=== PATIENT | female | born 1945 | race Caucasian/White ===

== ENCOUNTER 2022-08-08 20:57 | Observation (INO) ==
--- NOTE | 2022-08-08 21:23 | EKG ---
Test Reason : CHEST PAIN Blood Pressure : */* mmHG Vent. Rate : 89 BPM Atrial Rate : 89 BPM P-R Int : 186 ms QRS Dur : 174 ms QT Int : 434 ms P-R-T Axes : 52 -12 233 degrees QTc Int : 528 ms Atrial-sensed ventricular-paced rhythm Abnormal ECG No previous ECGs available Confirmed by Cole Coleman ([id number]) on 08/10/2022 8:15:48 AM Referred By: Confirmed By: Cole Coleman
--- NOTE | 2022-08-08 21:23 | DR.CP ---
HPI Time Seen Time Seen by Provider: 08/08/22 21:23 Complaint Chief Complaint Doctor Comments: 77 y/o female presents for evaluation. Not feeling well over the past week. Has had trouble breathing, non productive cough, episodes of chest discomfort. Today was walkig in a store, felt worse. Had to sit to catch her breath. Went home, took a nap. Feeling poorly, having some chest discomfort, but more of the sensation of not breathing well. Having some nausea, no vomiting. Denies bowel or bladder problems. No fever. Cough was improving yesterday. Reviewed Nurses Notes Review: Yes Source History Provided: Patient and Family Member PMH PMH Past Medical History: Yes Past Medical History: CVA, Depression, GERD and Hypertension Past Medical History Comment: h/o atrial fib, kidney stones Past Surgical History: Yes Surgical History: Hysterectomy Past Surgical History Comment: Pacemaker, spinal stimulator Family History History of Family Medical Conditions: Yes Family Medical History: Diabetes Mellitus, Coronary Artery Disease, Heart Failure and Hypertension Social History Does patient currently use any type of tobacco product: No Alcohol Use: None Do you use any recreational Drugs:: No ROS Review of Systems Constitutional: Weakness Eyes: No Symptoms Reported ENTM: No Symptoms Reported Respiratoy: Non-Productive Cough and Short of Breath Cardiovascular: Chest Pain Gastrointestinal/Abdominal: Nausea Genitourinary: No Symptoms Reported Neurological: Weakness Musculoskeletal: No Symptoms Reported Integumentary: No Symptoms Reported Hematologic/Lymphatic: No Symptoms Reported Psychiatric: No Symptoms Reported PE Vitals Vitals: Temperature 97.8 F Pulse Rate 74 Respiratory Rate 16 Blood Pressure 162/72 O2 Sat by Pulse Oximetry 93 General General Appearance: Alert and In No Apparent Distress Eyes Eye exam: PERRL and EOMI ENT ENT Exam: Normal Exam and Mucous Membranes Moist Chest Chest Inspection: Normal Inspection Respiratory Respiratory Exam: Normal Lung Sounds Bilat; negative Accessory Muscle Use or Respiratory Distress Cardiovascular Cardiovascular Exam: Regular Rate, Normal Rhythm and Normal Heart Sounds Abdominal Exam Abdominal Exam: Normal Bowel Sounds, Soft and Tenderness (mild RUQ) Extremities Extremities Exam: Normal Inspection; negative Edema Back Back Exam: negative Tenderness Neurologic Neurological Exam: Alert, Oriented X3 and CN II-XII Intact; negative Motor Sensory Deficit Skin Skin Exam: Warm and Dry COURSE Treatment Treatment: 77 y/o female not feeling well overthe past week, worsened today. W/u initiated. Pt given IV fluids, IV zofran. 0222 - initial CXR read as normal by radiology & me. CBC, CMP acceptable, except for elevated liver enzymes (AST 150, ALT 104). No labs here to compare to. Pt/familyunaware if she has had elevated liver enzymes in the past. Still has a GB. Obtained a CT of the abd/pelvis with IV contrast. CT done at 0140. Has a normal GB on CT. To me, has an infiltrate of the RLL, behind the diaphragm, appears to have an air bronchogram present. Radiologist read as atelectasis, but no significant LLL atelectasis. Ordered blood cultures, lactic acid, and IV Rocephin. Antibiotics not given earlier, as no obvious pneumonina on CXR. Recommend observation for further evaluation and treatment. 0307 - discussed with Dr Baer, accepts the admission. ROR Labs Reviewed Laboratory Results Reviewed?: Yes Result Diagrams: 08/08/22 21:30 08/08/22: Laboratory: WBC 7.7 X10^3/uL (3.6-10.0) 08/08/22 21: RBC 4.21 X10^6/uL (3.5-5.4) 08/08/22: Hgb 12.6 g/dL (12.0-16.0) 08/08/22: Hct 37.4 % (36.0-47.0) 08/08/22 21: MCV 88.8 fL (80.0-100.0) 08/08/22: MCH 30.0 pg (27.0-34.0) 08/08/22 21: MCHC 33.8 g/dL (33.0-35.0) 08/08/22 21: RDW 13.0 % (11.6-16.5) 08/08/22: Plt Count 237 X10^3/uL (150.0-450.0) 08/08/22: MPV 8.4 fL (7.4-11.0) 08/08/22 21: Neut % (Auto) 65.1 % (42.0-75.0) 08/08/22 21: Lymph % (Auto) 23.5 % (21.0-51.0) 08/08/22 21:30 Edgar % (Auto) 9.5 % (0.0-13.0) 08/08/22 21:30 Eos % (Auto) 1.3 % (0.9-2.9) 08/08/22 21: Baso % (Auto) 0.6 % (0.2-1.0) 08/08/22 21:30 Neut # (Auto) 5.0 x10^3/uL (2.2-4.8) H 08/08/22 21:30 Lymph # (Auto) 1.8 X10^3/uL (1.3-2.9) 08/08/22 21:30 Edgar # (Auto) 0.7 x10^3/uL (0.3-0.8) 08/08/22 21: Eos # (Auto) 0.1 x10^3/uL (0.0-0.2) 08/08/22 21:30 Baso # (Auto) 0.0 X10^3/uL (0.0-0.1) 08/08/22 21:30 Absolute Nucleated RBC 0.0 /100WBC 08/08/22 21:30 Sodium 147 mmol/L (136-145) H 08/08/22 21:30 Corrected Sodium TNP 08/08/22 21:30 Potassium 4.1 mmol/L (3.5-5.1) 08/08/22 21:30 Chloride 108 mmol/L (98-107) H 08/08/22 21:30 Carbon Dioxide 32.2 mmol/L (21-32) H 08/08/22 21:30 BUN 21 mg/dL (7-18) H 08/08/22 21:30 Creatinine 0.96 mg/dL (0.55-1.02) 08/08/22 21:30 Est GFR (MDRD) Af Amer > 60 (>60) 08/08/22 21:30 Est GFR (MDRD) Non-Af > 60 (>60) 08/08/22 21:30 Glucose 89 mg/dL (65-99) 08/08/22 21:30 Lactic Acid 1.1 mmol/L (0.4-2.0) 08/09/22 02:50 Calcium 9.1 mg/dL (8.5-10.1) 08/08/22 21: Corrected Calcium TNP 08/08/22 21:30 Total Bilirubin 0.20 mg/dL (0.2-1.0) 08/08/22 21:30 AST 150 Units/L (15-37) H 08/08/22 21:30 ALT 104 Units/L (12-78) H 08/08/22 21:30 Alkaline Phosphatase 145 Units/L (46-116) H 08/08/22: Troponin I High Sens 6.2 ng/L (4.0-60.0) 08/08/22 21: B-Natriuretic Peptide 40.2 pg/mL (0-79) 08/08/22: Total Protein 6.6 g/dL (6.4-8.2) 08/08/22: Albumin 3.4 g/dL (3.4-5.0) 08/08/22: Globulin 3.2 g/dL (2.5-4.5) 08/08/22: Albumin/Globulin Ratio 1.1 Ratio (1.1-2.1) 08/08/22 21: Lipase 147 Units/L (73-393) 08/08/22 21:30 Specimen Type Clean catch urine 08/08/22 22:00 Urine Color Pale yellow (YELLOW) 08/08/22 22:00 Urine Appearance Clear (CLEAR) 08/08/22 22:00 Urine pH 6.0 (5.0 - 8.0) 08/08/22 22:00 Ur Specific [place] 1.010 (1.000-1.030) 08/08/22 22:00 Urine Protein 1+ (NEGATIVE) 08/08/22 22:00 Urine Glucose (UA) Negative (NEGATIVE) 08/08/22 22:00 Urine Ketones Negative (NEGATIVE) 08/08/22 22:00 Urine Blood Negative (NEGATIVE) 08/08/22 22:00 Urine Nitrite Negative (NEGATIVE) 08/08/22 22:00 Urine Bilirubin Negative (NEGATIVE) 08/08/22 22:00 Urine Urobilinogen Normal (NORMAL) 08/08/22 22:00 Ur Leukocyte Esterase 1+ (NEGATIVE) 08/08/22 22:00 Urine RBC 0-2 /HPF (0-3) 08/08/22 22:00 Urine WBC 0-2 /HPF (0-5) 08/08/22 22:00 Ur Squamous Epith Cells Rare /HPF (NEGATIVE) 08/08/22 22:00 Calcium Oxalate Crystal Few /HPF (NEGATIVE) 08/08/22 22:00 Urine Bacteria Trace /HPF (NEGATIVE) 08/08/22 22:00 Ur Culture Indicated? No/not indicated 08/08/22 22:00 Labs acceptable except for elevated liver enzymes. EKG Rate: 89 Hanna: Normal Rhythm: Paced ST: Nonsp Opioid Opioid Risk Tool Total: 0 Total Score Risk Category: Low Risk Copyright: Marcus WONG predicting aberrant behaviors Discharge Plan Diagnosis Discharge Problem: RLL pneumonia, Dyspnea Discharge Plan Patient Disposition: ADMITTED INPATIENT Condition: Stable Prescriptions: No Action atorvastatin 20 mg tablet 1 tab PO QDAY tizanidine 4 mg tablet 1 tab PO QDAY PRN venlafaxine 150 mg capsule,extended release 24hr 1 cap PO QDAY carvedilol 3.125 mg tablet 1 tab PO BID amitriptyline 25 mg tablet 1 - 2 tab PO QPM flecainide 100 mg tablet 1 tab PO BID folic acid 1 mg tablet 1 tab PO QDAY gabapentin 100 mg capsule 1 cap PO BID Eliquis 5 mg tablet 1 tab PO BID amitriptyline 25 mg tablet 1 - 2 tab PO QPM Health Concerns: Post Hospitalization: new medications and changes needed to prevent readmission or further decline. Pt educated and given instructions on all concerns. Orders to Discharge Patient Discharge Orders: Transfer (Routine); Ordered 08/09/22 Ordered By: Valerio Castillo Follow ups/Referrals Follow ups/Referrals: NIKITA MCCLELLAND [Primary Care Provider] - 3 days
[2022-08-08] MEDS ORDERED: NS 500 ML IV 500 ML IV ONE (21:24)
[2022-08-08] MEDS: NS 500 ML IV 500 ML IV SCH (21:31)
[2022-08-08] MEDS ORDERED: ZOFRAN INJ 4 MG VIAL ONE (21:48)
--- NOTE | 2022-08-08 21:53 | RAD ---
HISTORYChest painSTUDYCHEST, 1 VIEWCOMPARISONNone availableTECHNIQUEChest radiographic imaging, AP portable projection, 1 imageFINDINGSNo cardiomegaly.Pacemaker in place.No focal airspace disease.No pleural effusion.No pneumothorax.No acute osseous abnormality.IMPRESSIONNo imaging findings of acute cardiopulmonary disease.Electronically signed by: Bay Dietrich (Aug 08, 2022 21:52:00)
[2022-08-08 21:55] LABS: BASOPHILS % (AUTO) 0.6 % (0.2-1.0); EOSINOPHILS # (AUTO) 0.1 x10^3/uL (0.0-0.2); EOSINOPHILS % (AUTO) 1.3 % (0.9-2.9); HEMATOCRIT 37.4 % (36.0-47.0); HEMOGLOBIN 12.6 g/dL (12.0-16.0); LYMPHOCYTES # (AUTO) 1.8 X10^3/uL (1.3-2.9); LYMPHOCYTES % (AUTO) 23.5 % (21.0-51.0); MEAN CORPUSCULAR HGB CONC 33.8 g/dL (33.0-35.0); MEAN CORPUSCULAR VOLUME 88.8 fL (80.0-100.0); MEAN PLATELET VOLUME 8.4 fL (7.4-11.0); MONOCYTES # (AUTO) 0.7 x10^3/uL (0.3-0.8); MONOCYTES % (AUTO) 9.5 % (0.0-13.0); NEUTROPHILS % (AUTO) 65.1 % (42.0-75.0); RED BLOOD COUNT 4.21 X10^6/uL (3.5-5.4); WHITE BLOOD COUNT 7.7 X10^3/uL (3.6-10.0)
[2022-08-08] MEDS: ZOFRAN INJ 4 MG VIAL IVP ONE (21:56)
[2022-08-08 22:08] LABS: ALANINE AMINOTRANSFERASE 104 Units/L (12-78); ALBUMIN 3.4 g/dL (3.4-5.0); ALKALINE PHOSPHATASE 145 Units/L (46-116); ASPARTATE AMINO TRANSFERASE 150 Units/L (15-37); BLOOD UREA NITROGEN 21 mg/dL (7-18); CALCIUM 9.1 mg/dL (8.5-10.1); CARBON DIOXIDE 32.2 mmol/L (21-32); CHLORIDE 108 mmol/L (98-107); CREATININE 0.96 mg/dL (0.55-1.02); LIPASE 147 Units/L (73-393); SODIUM 147 mmol/L (136-145); TOTAL PROTEIN 6.6 g/dL (6.4-8.2); eGFR NON BLACK RACES > 60 (>60)
[2022-08-08 22:38] LABS: BILIRUBIN,URINE NEGATIVE (NEGATIVE); BLOOD/HEMOGLOBIN,URINE NEGATIVE (NEGATIVE); GLUCOSE, URINE NEGATIVE (NEGATIVE); KETONES,URINE NEGATIVE (NEGATIVE); LEUKOCYTE ESTERASE ,URINE 1+ (NEGATIVE); NITRITES,URINE NEGATIVE (NEGATIVE); PROTEIN,URINE 1+ (NEGATIVE); UROBILINOGEN,URINE NORMAL (NORMAL)
[2022-08-08 22:46] LABS: APPEARANCE,URINE CLEAR (CLEAR); BACTERIA,URINE TRACE /HPF (NEGATIVE); CALCIUM OXALATE CRYSTALS,UR FEW /HPF (NEGATIVE); COLOR,URINE PALE YELLOW (YELLOW); RBC,URINE 0-2 /HPF (0-3); SQUAMOUS EPITHELIAL CELL,UR RARE /HPF (NEGATIVE)
[2022-08-09] MEDS ORDERED: ROCEPHIN VIAL 1 GRAM 1 G in NS 100 ML IV 100 ML IV SCH (02:06)
[2022-08-09] MEDS ORDERED: NS 100 ML IV 100 ML ONE (02:09)
[2022-08-09] MEDS ORDERED: ROCEPHIN VIAL 1 GRAM ONE (02:09)
--- NOTE | 2022-08-09 02:09 | CT ---
HISTORYNAUSEA, ABN LIVER ENZYMESSTUDYABDOMEN/PELVIS WITH CONCOMPARISONNoneTECHNIQUEMultiple axial images of the abdomen and pelvis were obtained from the lung bases to the pubic symphysis after the administration of IV contrast. Dose reduction techniques including Automated Exposure Control (AEC) and adjustment of mA and kV were utilized.FINDINGSThe visualized portions of the lung bases subsegmental atelectasis right lower lobe.. The liver, spleen, pancreas, kidneys, and adrenal glands are unremarkable in their CT appearance. The gallbladder is unremarkable in its CT appearance . No significant mesenteric lymphadenopathy or stranding can be observed. No free fluid or free air is seen within the abdomen. The appendix is not visualized. No bowel wall thickening or bowel dilatation is present. Colon is normal in caliber. There are scattered diverticula arising from the descending and sigmoid colon without evidence of acute diverticulitis.. The urinary bladder is grossly unremarkable. The uterus is been removed. The bony structures are grossly intact. There is dextroscoliosis of the lumbar spine.IMPRESSIONColonic diverticulosis without evidence of diverticulitis.No acute abdominal or pelvic pathologyElectronically signed by: Flo Jensen (Aug 09, 2022 02:07:53)
[2022-08-09] MEDS ORDERED: ZANAFLEX PO PRN (04:28)
[2022-08-09 04:42] VITALS: BMI 27.1
--- NOTE | 2022-08-09 04:50 | EKG ---
Test Reason : cp Blood Pressure : */* mmHG Vent. Rate : 71 BPM Atrial Rate : 71 BPM P-R Int : 222 ms QRS Dur : 150 ms QT Int : 460 ms P-R-T Axes : 49 -43 36 degrees QTc Int : 499 ms Atrial-sensed ventricular-paced rhythm with prolonged AV conduction Abnormal ECG When compared with ECG of 08-AUG-2022 21:21, (Unconfirmed) Vent. rate has decreased BY 18 BPM Confirmed by Cole Coleman ([id number]) on 08/10/2022 8:15:10 AM Referred By: Confirmed By: Cole Coleman
[2022-08-09] MEDS ORDERED: SALINE 3% 15 ML NEB TX ONE (04:52)
[2022-08-09] MEDS ORDERED: SALINE 3% 15 ML NEB TX NEB ONE (04:59)
[2022-08-09] MEDS: NS 1,000 ML IV 1,000 ML IV SCH ×3 (05:10→18:20)
[2022-08-09] MEDS: NS 500 ML IV 500 ML IV SCH (05:21)
[2022-08-09 06:31] LABS: BASOPHILS % (AUTO) 0.7 % (0.2-1.0); EOSINOPHILS # (AUTO) 0.1 x10^3/uL (0.0-0.2); EOSINOPHILS % (AUTO) 1.1 % (0.9-2.9); HEMATOCRIT 34.8 % (36.0-47.0); HEMOGLOBIN 11.7 g/dL (12.0-16.0); LYMPHOCYTES # (AUTO) 1.9 X10^3/uL (1.3-2.9); LYMPHOCYTES % (AUTO) 32.1 % (21.0-51.0); MEAN CORPUSCULAR HEMOGLOBIN 29.7 pg (27.0-34.0); MEAN CORPUSCULAR HGB CONC 33.7 g/dL (33.0-35.0); MEAN CORPUSCULAR VOLUME 88.2 fL (80.0-100.0); MEAN PLATELET VOLUME 8.4 fL (7.4-11.0); MONOCYTES # (AUTO) 0.7 x10^3/uL (0.3-0.8); MONOCYTES % (AUTO) 11.8 % (0.0-13.0); NEUTROPHILS # (AUTO) 3.2 x10^3/uL (2.2-4.8); NEUTROPHILS % (AUTO) 54.3 % (42.0-75.0); RED BLOOD COUNT 3.94 X10^6/uL (3.5-5.4); RED CELL DISTRIBUTION WIDTH 12.9 % (11.6-16.5); WHITE BLOOD COUNT 5.9 X10^3/uL (3.6-10.0)
[2022-08-09 07:09] LABS: ALANINE AMINOTRANSFERASE 97 Units/L (12-78); ALBUMIN 2.9 g/dL (3.4-5.0); ALKALINE PHOSPHATASE 123 Units/L (46-116); ASPARTATE AMINO TRANSFERASE 99 Units/L (15-37); BLOOD UREA NITROGEN 19 mg/dL (7-18); CALCIUM 8.9 mg/dL (8.5-10.1); CARBON DIOXIDE 29.1 mmol/L (21-32); CHLORIDE 107 mmol/L (98-107); COR CA(FOR HYPOALB) 9.8 mg/dL (8.5-10.1); CREATININE 0.75 mg/dL (0.55-1.02); SODIUM 143 mmol/L (136-145); TOTAL PROTEIN 5.9 g/dL (6.4-8.2); eGFR NON BLACK RACES > 60 (>60)
[2022-08-09] MEDS ORDERED: TYLENOL 325 MG TAB PO PRN (07:26)
[2022-08-09] MEDS: ELIQUIS PO SCH ×2 (08:23→20:36)
[2022-08-09] MEDS: NEURONTIN CAP 100 MG PO SCH ×2 (08:23→20:36)
[2022-08-09] MEDS: FOLIC ACID TAB 1 MG PO SCH (08:23)
[2022-08-09] MEDS: LIPITOR TAB 20 MG PO SCH (08:24)
[2022-08-09] MEDS: COREG TAB 3.125 MG PO SCH ×2 (08:24→20:36)
[2022-08-09] MEDS: TAMBOCOR PO SCH ×2 (08:24→20:36)
[2022-08-09] MEDS: PROVENTIL NEB TX 0.083% 2.5MG/ 3ML NEB SCH ×2 (08:25→21:32)
[2022-08-09] MEDS: EFFEXOR XR 150 MG CAP 24-HR PO SCH (08:31)
--- NOTE | 2022-08-09 08:43 | DR.H&P ---
H&P History & Physical for Day of: H&P Date: 08/09/22 Chief Complaint Chief Complaint: Dyspnea on exertion Allergies Allergies Allergy/AdvReac Type Severity Reaction Status Date / Time morphine Allergy Verified 08/08/22 21:37 History of Present Illness History of Present Illness: This is a 77-year-old white female who presented to [facility] emergency department last night with complaints of getting dyspnea on exertion while walking in a store yesterday. She had a sit down to rest a while to catch her breath. She does report history of atrial fibrillation in which she is being treated for it she also reports having a pacemaker. 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 Patient does report this morning that the chest tightness and chest discomfort started 2 weeks ago and has been progressively getting worse when she is doing something exertional. ER physician thought the patient may have pneumonia last night as a CT scan revealed that the radiologist called atelectasis in the right lower lobe last night. However the patient is afebrile and does not have elevated white count I am more inclined to think the patient may be suffering from angina symptoms rather than respiratory illness. Past Medical History Past Medical History: CVA, Depression, GERD and Hypertension Past Surgical History Surgical History: Hysterectomy and Ortho Surgery Family History Family Medical History: Diabetes Mellitus and Coronary Artery Disease Social History Does patient currently use any type of tobacco product: No Have you used tobacco products in the last 12 months: No Type of Tobacco Use: None Does any household member use tobacco: No Alcohol Use: None Drug Use: None Medications Home Medications: morphine Allergy (Verified 08/08/22 21:37) CONTINUE taking the following medications amitriptyline 25 mg tablet 1 - 2 tab PO QPM 08/08/22 [History] apixaban 5 mg tablet (Eliquis) 1 tab PO BID 08/08/22 [History] atorvastatin 20 mg tablet 1 tab PO QDAY 08/08/22 [History] carvedilol 3.125 mg tablet 1 tab PO BID 08/08/22 [History] flecainide 100 mg tablet 1 tab PO BID 08/08/22 [History] folic acid 1 mg tablet 1 tab PO QDAY 08/08/22 [History] gabapentin 100 mg capsule 1 cap PO BID 08/08/22 [History] tizanidine 4 mg tablet 1 tab PO QDAY PRN 08/08/22 [History] venlafaxine 150 mg capsule,extended release 24 hr 1 cap PO QDAY 08/08/22 [History] amitriptyline 25 mg tablet 1 - 2 tab PO QPM 08/09/22 [History] Labs Result Diagrams: 08/09/22 05:56 08/09/22 05:56 Labs: Laboratory WBC 5.9 X10^3/uL (3.6-10.0) 08/09/22 05:56 RBC 3.94 X10^6/uL (3.5-5.4) 08/09/22 05:56 Hgb 11.7 g/dL (12.0-16.0) L 08/09/22 05:56 Hct 34.8 % (36.0-47.0) L 08/09/22 05:56 MCV 88.2 fL (80.0-100.0) 08/09/22 05:56 MCH 29.7 pg (27.0-34.0) 08/09/22 05:56 MCHC 33.7 g/dL (33.0-35.0) 08/09/22 05:56 RDW 12.9 % (11.6-16.5) 08/09/22 05:56 Plt Count 192 X10^3/uL (150.0-450.0) 08/09/22 05:56 MPV 8.4 fL (7.4-11.0) 08/09/22 05:56 Neut % (Auto) 54.3 % (42.0-75.0) 08/09/22 05:56 Lymph % (Auto) 32.1 % (21.0-51.0) 08/09/22 05:56 [place] % (Auto) 11.8 % (0.0-13.0) 08/09/22 05:56 Eos % (Auto) 1.1 % (0.9-2.9) 08/09/22 05:56 Baso % (Auto) 0.7 % (0.2-1.0) 08/09/22 05:56 Neut # (Auto) 3.2 x10^3/uL (2.2-4.8) 08/09/22 05:56 Lymph # (Auto) 1.9 X10^3/uL (1.3-2.9) 08/09/22 05:56 [place] # (Auto) 0.7 x10^3/uL (0.3-0.8) 08/09/22 05:56 Eos # (Auto) 0.1 x10^3/uL (0.0-0.2) 08/09/22 05:56 Baso # (Auto) 0.0 X10^3/uL (0.0-0.1) 08/09/22 05:56 Absolute Nucleated RBC 0.0 /100WBC 08/09/22 05:56 Sodium 143 mmol/L (136-145) 08/09/22 05:56 Corrected Sodium TNP 08/09/22 05:56 Potassium 4.7 mmol/L (3.5-5.1) 08/09/22 05:56 Chloride 107 mmol/L (98-107) 08/09/22 05:56 Carbon Dioxide 29.1 mmol/L (21-32) 08/09/22 05:56 BUN 19 mg/dL (7-18) H 08/09/22 05:56 Creatinine 0.75 mg/dL (0.55-1.02) 08/09/22 05:56 Est GFR (MDRD) Af Amer > 60 (>60) 08/09/22 05:56 Est GFR (MDRD) Non-Af > 60 (>60) 08/09/22 05:56 Glucose 95 mg/dL (65-99) 08/09/22 05:56 Lactic Acid 1.1 mmol/L (0.4-2.0) 08/09/22 02:50 Calcium 8.9 mg/dL (8.5-10.1) 08/09/22 05:56 Corrected Calcium 9.8 mg/dL (8.5-10.1) 08/09/22 05:56 Total Bilirubin 0.20 mg/dL (0.2-1.0) 08/09/22 05:56 AST 99 Units/L (15-37) H 08/09/22 05:56 ALT 97 Units/L (12-78) H 08/09/22 05:56 Alkaline Phosphatase 123 Units/L (46-116) H 08/09/22 05:56 Troponin I High Sens 7.9 ng/L (4.0-60.0) 08/09/22 05:56 B-Natriuretic Peptide 40.2 pg/mL (0-79) 08/08/22 21:30 Total Protein 5.9 g/dL (6.4-8.2) L 08/09/22 05:56 Albumin 2.9 g/dL (3.4-5.0) L 08/09/22 05:56 Globulin 3.0 g/dL (2.5-4.5) 08/09/22 05:56 Albumin/Globulin Ratio 1.0 Ratio (1.1-2.1) L 08/09/22 05:56 Lipase 147 Units/L (73-393) 08/08/22 21:30 Specimen Type Clean catch urine 08/08/22 22:00 Urine Color Pale yellow (YELLOW) 08/08/22 22:00 Urine Appearance Clear (CLEAR) 08/08/22 22:00 Urine pH 6.0 (5.0 - 8.0) 08/08/22 22:00 Ur Specific [place] 1.010 (1.000-1.030) 08/08/22 22:00 Urine Protein 1+ (NEGATIVE) 08/08/22 22:00 Urine Glucose (UA) Negative (NEGATIVE) 08/08/22 22:00 Urine Ketones Negative (NEGATIVE) 08/08/22 22:00 Urine Blood Negative (NEGATIVE) 08/08/22 22:00 Urine Nitrite Negative (NEGATIVE) 08/08/22 22:00 Urine Bilirubin Negative (NEGATIVE) 08/08/22 22:00 Urine Urobilinogen Normal (NORMAL) 08/08/22 22:00 Ur Leukocyte Esterase 1+ (NEGATIVE) 08/08/22 22:00 Urine RBC 0-2 /HPF (0-3) 08/08/22 22:00 Urine WBC 0-2 /HPF (0-5) 08/08/22 22:00 Ur Squamous Epith Cells Rare /HPF (NEGATIVE) 08/08/22 22:00 Calcium Oxalate Crystal Few /HPF (NEGATIVE) 08/08/22 22:00 Urine Bacteria Trace /HPF (NEGATIVE) 08/08/22 22:00 Ur Culture Indicated? No/not indicated 08/08/22 22:00 Review of Systems Constitutional: Weakness and Malaise; denies Fever, Chills or Sweats Eyes: No Symptoms Reported ENT: No Symptoms Reported Respiratory: Cough and SOB with Excertion; denies Pleuritic Pain or Wheezing Cardiovascular: Chest Pain; denies Palpitations, Orthopnea, Paroxysmal Noc. 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 Wheeze, RLL Rales, RLL Rub or RLL Squeak Cardiovascular: Normal; negative Tachycardia, Bradycardia or Murmur Auscultation: Bowel Sounds: Normal Palpation: Normal Tenderness: Normal Skin: Normal Musculoskeletal: Normal Psychiatric: Normal; negative Anxiety, Depression or Agitation Mood Description: Calm and Appropriate; negative Apathetic or Anxious Affect: Normal; negative Anxious or Hysterical Speech Pattern: Clear and Appropriate; negative Inappropriate or Delayed Assessment/Plan (1) Dyspnea on exertion: Status: Acute Plan: I will consult the patient's sew out operator, Dr. Coleman for further cardiac work-up. (2) History of atrial fibrillation: Status: Acute Plan: Continue flecainide, carvedilol and Eliquis. (3) RLL pneumonia: Status: Acute Plan: Continue Rocephin. Follow-up sputum cultures and blood cultures when available. Repeat chest x-ray tomorrow morning. (4) Abnormal LFTs: Status: Acute Plan: Consult gastroenterology, Dr. Taylor. (5) Hypertension: Narrative Support Text: Patient's blood pressure is elevated this morning at 160s over 60s. Status: Acute Plan: I will add losartan 50 mg p.o. daily Review H&P Reviewed: Yes Patient was examined?: Yes
[2022-08-09] MEDS: COZAAR PO SCH (10:30)
--- NOTE | 2022-08-09 10:36 | EKG ---
Test Reason : CHEST PAIN Blood Pressure : */* mmHG Vent. Rate : 70 BPM Atrial Rate : 70 BPM P-R Int : 178 ms QRS Dur : 180 ms QT Int : 488 ms P-R-T Axes : -7 -8 246 degrees QTc Int : 527 ms AV dual-paced rhythm Abnormal ECG When compared with ECG of 09-AUG-2022 04:42, (Unconfirmed) No significant change was found Confirmed by Cole Coleman ([id number]) on 08/10/2022 8:14:30 AM Referred By: Confirmed By: Cole Coleman
[2022-08-09] MEDS: ELAVIL PO SCH (20:36)
[2022-08-10] MEDS: NS 1,000 ML IV 1,000 ML IV SCH ×3 (04:14→20:28)
[2022-08-10 04:33] LABS: BASOPHILS % (AUTO) 0.8 % (0.2-1.0); EOSINOPHILS # (AUTO) 0.1 x10^3/uL (0.0-0.2); EOSINOPHILS % (AUTO) 1.8 % (0.9-2.9); HEMATOCRIT 34.2 % (36.0-47.0); HEMOGLOBIN 11.6 g/dL (12.0-16.0); LYMPHOCYTES # (AUTO) 1.7 X10^3/uL (1.3-2.9); LYMPHOCYTES % (AUTO) 40.6 % (21.0-51.0); MEAN CORPUSCULAR HEMOGLOBIN 29.9 pg (27.0-34.0); MEAN CORPUSCULAR VOLUME 88.1 fL (80.0-100.0); MEAN PLATELET VOLUME 8.5 fL (7.4-11.0); MONOCYTES # (AUTO) 0.4 x10^3/uL (0.3-0.8); MONOCYTES % (AUTO) 8.8 % (0.0-13.0); NEUTROPHILS # (AUTO) 2.1 x10^3/uL (2.2-4.8); RED BLOOD COUNT 3.88 X10^6/uL (3.5-5.4); RED CELL DISTRIBUTION WIDTH 13.2 % (11.6-16.5); WHITE BLOOD COUNT 4.3 X10^3/uL (3.6-10.0)
[2022-08-10 04:47] LABS: ALANINE AMINOTRANSFERASE 88 Units/L (12-78); ALBUMIN 2.8 g/dL (3.4-5.0); ALKALINE PHOSPHATASE 109 Units/L (46-116); ASPARTATE AMINO TRANSFERASE 65 Units/L (15-37); BLOOD UREA NITROGEN 12 mg/dL (7-18); CALCIUM 8.5 mg/dL (8.5-10.1); CARBON DIOXIDE 27.9 mmol/L (21-32); CHLORIDE 108 mmol/L (98-107); COR CA(FOR HYPOALB) 9.5 mg/dL (8.5-10.1); CREATININE 0.62 mg/dL (0.55-1.02); SODIUM 143 mmol/L (136-145); TOTAL PROTEIN 5.7 g/dL (6.4-8.2); eGFR NON BLACK RACES > 60 (>60)
--- NOTE | 2022-08-10 05:14 | RAD ---
HISTORYSOB Relevant Clinical InformationSTUDYCHEST, 1 [id number]/14/2023FINDINGSThe trachea is midline. The cardiac silhouette is unremarkable. Permanent pacing device. The lungs are clear without focal infiltrate or effusion. The bony thorax is unremarkable.IMPRESSIONNo acute cardiopulmonary findings .Electronically signed by: Flo Jensen (Aug 10, 2022 05:13:28)
[2022-08-10] MEDS: ROCEPHIN VIAL 1 GRAM 1 G in NS 100 ML IV 100 ML IV SCH (08:13)
[2022-08-10] MEDS: ELIQUIS PO SCH ×2 (08:15→20:27)
[2022-08-10] MEDS: TAMBOCOR PO SCH ×2 (08:15→20:27)
[2022-08-10] MEDS: NEURONTIN CAP 100 MG PO SCH ×2 (08:15→20:27)
[2022-08-10] MEDS: COZAAR PO SCH (08:15)
[2022-08-10] MEDS: COREG TAB 3.125 MG PO SCH ×2 (08:15→20:27)
[2022-08-10] MEDS: FOLIC ACID TAB 1 MG PO SCH (08:15)
[2022-08-10] MEDS ORDERED: TORADOL 30 MG VIAL IVP NR ×2 (08:16→12:00)
[2022-08-10] MEDS: LIPITOR TAB 20 MG PO SCH (08:25)
[2022-08-10] MEDS: PROVENTIL NEB TX 0.083% 2.5MG/ 3ML NEB SCH ×2 (08:55→20:40)
[2022-08-10] MEDS: EFFEXOR XR 150 MG CAP 24-HR PO SCH (10:00)
--- NOTE | 2022-08-10 11:25 | PCM.PROG ---
Progress Note Progress Note for Day of Date of Exam: 08/10/22 Subjective Subjective: Patient is feeling somewhat better this morning. Her breathing is doing fine today and she had echocardiogram yesterday. Her community health advisor, Dr. Coleman saw her in order the echocardiogram and has ordered small test for her as outpatient. She will be following up with him for that. Gastroenterology will be seeing her today for her elevated LFTs. Her LFTs have come down since admission and I have been holding her acetaminophen at this time. She does report headache this morning so we will give her Toradol 30 mg IV x1. Plan on discharging the patient tomorrow as long as she is continuing to show improvement. Past Medical Family Social History Allergies: Allergies morphine Allergy (Verified 08/08/22 21:37) Vital Signs and I&O's Vital Signs: Temperature 98.4 F Pulse Rate [Bilateral Radial] 69 Pulse Rate 75 Respiratory Rate 18 Blood Pressure [Left Arm] 136/67 Blood Pressure 149/68 O2 Sat by Pulse Oximetry 93 Intake and Output: Intake & Output 08/07/22 08/08/22 08/09/22 08/10/22 11:59 11:59 11:59 11:59 Intake Total 320 / 320 3152 / 3152 Balance 320 / 320 3152 / 3152 Physical Exam Oriented: Normal, Time, Person and Place; negative Not Oriented or Unable to test Eyes: Normal Ear: Normal Respiratory: Normal Cardiovascular: Normal; negative Tachycardia, Bradycardia or Murmur Auscultation: Bowel Sounds: Normal Tenderness: Normal Skin: Normal Musculoskeletal: Normal Psychiatric: Normal; negative Anxiety, Depression or Agitation Mood Description: Calm and Appropriate; negative Apathetic or Anxious Affect: Normal; negative Anxious or Hysterical Speech Pattern: Clear and Appropriate Laboratory and Diagnostics Result Diagrams: 08/10/22 04:15 08/10/22 04:15 Labs: Laboratory WBC 4.3 X10^3/uL (3.6-10.0) 08/10/22 04:15 RBC 3.88 X10^6/uL (3.5-5.4) 08/10/22 04:15 Hgb 11.6 g/dL (12.0-16.0) L 08/10/22 04:15 Hct 34.2 % (36.0-47.0) L 08/10/22 04:15 MCV 88.1 fL (80.0-100.0) 08/10/22 04:15 MCH 29.9 pg (27.0-34.0) 08/10/22 04:15 MCHC 34.0 g/dL (33.0-35.0) 08/10/22 04:15 RDW 13.2 % (11.6-16.5) 08/10/22 04:15 Plt Count 196 X10^3/uL (150.0-450.0) 08/10/22 04:15 MPV 8.5 fL (7.4-11.0) 08/10/22 04:15 Neut % (Auto) 48.0 % (42.0-75.0) 08/10/22 04:15 Lymph % (Auto) 40.6 % (21.0-51.0) 08/10/22 04:15 [place] % (Auto) 8.8 % (0.0-13.0) 08/10/22 04:15 Eos % (Auto) 1.8 % (0.9-2.9) 08/10/22 04:15 Baso % (Auto) 0.8 % (0.2-1.0) 08/10/22 04:15 Neut # (Auto) 2.1 x10^3/uL (2.2-4.8) L 08/10/22 04:15 Lymph # (Auto) 1.7 X10^3/uL (1.3-2.9) 08/10/22 04:15 [place] # (Auto) 0.4 x10^3/uL (0.3-0.8) 08/10/22 04:15 Eos # (Auto) 0.1 x10^3/uL (0.0-0.2) 08/10/22 04:15 Baso # (Auto) 0.0 X10^3/uL (0.0-0.1) 08/10/22 04:15 Absolute Nucleated RBC 0.0 /100WBC 08/10/22 04:15 Sodium 143 mmol/L (136-145) 08/10/22 04:15 Corrected Sodium TNP 08/10/22 04:15 Potassium 4.2 mmol/L (3.5-5.1) 08/10/22 04:15 Chloride 108 mmol/L (98-107) H 08/10/22 04:15 Carbon Dioxide 27.9 mmol/L (21-32) 08/10/22 04:15 BUN 12 mg/dL (7-18) 08/10/22 04:15 Creatinine 0.62 mg/dL (0.55-1.02) 08/10/22 04:15 Est GFR (MDRD) Af Amer > 60 (>60) 08/10/22 04:15 Est GFR (MDRD) Non-Af > 60 (>60) 08/10/22 04:15 Glucose 83 mg/dL (65-99) 08/10/22 04:15 Lactic Acid 1.1 mmol/L (0.4-2.0) 08/09/22 02:50 Calcium 8.5 mg/dL (8.5-10.1) 08/10/22 04:15 Corrected Calcium 9.5 mg/dL (8.5-10.1) 08/10/22 04:15 Total Bilirubin 0.30 mg/dL (0.2-1.0) 08/10/22 04:15 AST 65 Units/L (15-37) H 08/10/22 04:15 ALT 88 Units/L (12-78) H 08/10/22 04:15 Alkaline Phosphatase 109 Units/L (46-116) 08/10/22 04:15 Troponin I High Sens 8.0 ng/L (4.0-60.0) 08/09/22 11:14 B-Natriuretic Peptide 40.2 pg/mL (0-79) 08/08/22 21:30 Total Protein 5.7 g/dL (6.4-8.2) L 08/10/22 04:15 Albumin 2.8 g/dL (3.4-5.0) L 08/10/22 04:15 Globulin 2.9 g/dL (2.5-4.5) 08/10/22 04:15 Albumin/Globulin Ratio 1.0 Ratio (1.1-2.1) L 08/10/22 04:15 Lipase 147 Units/L (73-393) 08/08/22 21:30 Specimen Type Clean catch urine 08/08/22 22:00 Urine Color Pale yellow (YELLOW) 08/08/22 22:00 Urine Appearance Clear (CLEAR) 08/08/22 22:00 Urine pH 6.0 (5.0 - 8.0) 08/08/22 22:00 Ur Specific [place] 1.010 (1.000-1.030) 08/08/22 22:00 Urine Protein 1+ (NEGATIVE) 08/08/22 22:00 Urine Glucose (UA) Negative (NEGATIVE) 08/08/22 22:00 Urine Ketones Negative (NEGATIVE) 08/08/22 22:00 Urine Blood Negative (NEGATIVE) 08/08/22 22: Urine Nitrite Negative (NEGATIVE) 08/08/22 22: Urine Bilirubin Negative (NEGATIVE) 08/08/22 22: Urine Urobilinogen Normal (NORMAL) 08/08/22 22:00 Ur Leukocyte Esterase 1+ (NEGATIVE) 08/08/22 22:00 Urine RBC 0-2 /HPF (0-3) 08/08/22 22:00 Urine WBC 0-2 /HPF (0-5) 08/08/22 22:00 Ur Squamous Epith Cells Rare /HPF (NEGATIVE) 08/08/22 22:00 Calcium Oxalate Crystal Few /HPF (NEGATIVE) 08/08/22 22:00 Urine Bacteria Trace /HPF (NEGATIVE) 08/08/22 22:00 Ur Culture Indicated? No/not indicated 08/08/22 22:00 Plan (1) Dyspnea on exertion: Status: Acute Plan: I will consult the patient's community health advisor, Dr. Coleman for further cardiac work-up. (2) History of atrial fibrillation: Status: Acute Plan: Continue flecainide, carvedilol and Eliquis. (3) RLL pneumonia: Status: Acute Plan: Continue Rocephin. Follow-up sputum cultures and blood cultures when available. Repeat chest x-ray tomorrow morning. (4) Abnormal LFTs: Status: Acute Plan: Consult gastroenterology, Dr. Taylor. Continue to hold acetaminophen at this time. (5) Hypertension: Status: Acute Plan: I will add losartan 50 mg p.o. daily
[2022-08-10] MEDS: ELAVIL PO SCH (20:27)
[2022-08-11 04:37] VITALS: BP 164/79
[2022-08-11 06:27] LABS: BASOPHILS % (AUTO) 0.7 % (0.2-1.0); EOSINOPHILS # (AUTO) 0.1 x10^3/uL (0.0-0.2); EOSINOPHILS % (AUTO) 2.7 % (0.9-2.9); HEMOGLOBIN 11.2 g/dL (12.0-16.0); LYMPHOCYTES # (AUTO) 1.5 X10^3/uL (1.3-2.9); LYMPHOCYTES % (AUTO) 34.4 % (21.0-51.0); MEAN CORPUSCULAR HEMOGLOBIN 30.2 pg (27.0-34.0); MEAN CORPUSCULAR HGB CONC 34.1 g/dL (33.0-35.0); MEAN CORPUSCULAR VOLUME 88.8 fL (80.0-100.0); MEAN PLATELET VOLUME 8.8 fL (7.4-11.0); MONOCYTES # (AUTO) 0.4 x10^3/uL (0.3-0.8); MONOCYTES % (AUTO) 9.9 % (0.0-13.0); NEUTROPHILS # (AUTO) 2.3 x10^3/uL (2.2-4.8); NEUTROPHILS % (AUTO) 52.3 % (42.0-75.0); RED BLOOD COUNT 3.72 X10^6/uL (3.5-5.4); RED CELL DISTRIBUTION WIDTH 13.2 % (11.6-16.5); WHITE BLOOD COUNT 4.5 X10^3/uL (3.6-10.0)
[2022-08-11 06:44] LABS: ALANINE AMINOTRANSFERASE 79 Units/L (12-78); ALBUMIN 2.6 g/dL (3.4-5.0); ALKALINE PHOSPHATASE 114 Units/L (46-116); ASPARTATE AMINO TRANSFERASE 55 Units/L (15-37); BLOOD UREA NITROGEN 11 mg/dL (7-18); CARBON DIOXIDE 30.8 mmol/L (21-32); CHLORIDE 109 mmol/L (98-107); COR CA(FOR HYPOALB) 9.1 mg/dL (8.5-10.1); CREATININE 0.59 mg/dL (0.55-1.02); SODIUM 144 mmol/L (136-145); TOTAL PROTEIN 5.4 g/dL (6.4-8.2); eGFR NON BLACK RACES > 60 (>60)
[2022-08-11] MEDS: TAMBOCOR PO SCH (08:04)
[2022-08-11] MEDS: NS 1,000 ML IV 1,000 ML IV SCH (08:04)
[2022-08-11] MEDS: ROCEPHIN VIAL 1 GRAM 1 G in NS 100 ML IV 100 ML IV SCH (08:04)
[2022-08-11] MEDS: COREG TAB 3.125 MG PO SCH (08:05)
[2022-08-11] MEDS: LIPITOR TAB 20 MG PO SCH (08:05)
[2022-08-11] MEDS: NEURONTIN CAP 100 MG PO SCH (08:05)
[2022-08-11] MEDS: COZAAR PO SCH (08:05)
[2022-08-11] MEDS: EFFEXOR XR 150 MG CAP 24-HR PO SCH (08:05)
[2022-08-11] MEDS: FOLIC ACID TAB 1 MG PO SCH (08:05)
[2022-08-11] MEDS: ELIQUIS PO SCH (08:05)
[2022-08-11] MEDS: PROVENTIL NEB TX 0.083% 2.5MG/ 3ML NEB SCH (08:36)
== END 2022-08-11 11:00 | disposition home or self-care (01) ==
LOC: ER 20:57 → ICU 20:57 → MED/SURG 08-10 14:47
PROVIDERS: ADMIT Family Medicine; ATTEND Family Medicine